=== PATIENT | female | born 1990 | race Caucasian/White ===

== ENCOUNTER 2020-05-02 07:21 | Inpatient (IN) ==
--- NOTE | 2020-05-02 07:26 | History & Physical Report ---
Date of Service May 02, 2020 Assessment & Plan (1) Elective induction of labor planned: - For induction of labor this AM. - For augmentation with Pitocin this morning 1x2, AROM later today. - Labor plan includes epidural, anesthesiology consult placed. - Expect . (2) Unfavorable cervix in term : (3) Post-term : History of Present Illness Chief Complaint: induction of labor Primary Care Provider: JAYCEE Burden 29 yo F at 40.6 weeks here for induction of labor for postdates. Had Aguilar bulb placed last night by Dr. Levi, which fell out last night before leaving hospital. No concerns or complaints this AM. No regular contractions, no gush of fluid. Reports minimal spotting following the Aguilar bulb falling out. Confirms good movement. Branch Office Administrator Hx: hx of normal PAPs, no STI hx OB Hx: Labs: Blood type: B+ Antibody screen: negative Hgb: 11.6 Hct: 32.7% WBC: 11.23 Plt: 198 Rubella status: immune VDLR/RPR: nonreactive Gonorrhea: negative Chlamydia: negative HIV: negative GBS: negative HbSAg: negative Glucose tolerance test x2: normal Allergies Allergy/AdvReac Type Severity Reaction Status Date / Time No Known Allergies Allergy Verified 05/01/20 13:31 Home Medications Home Medications Medication Instructions Recorded Confirmed Type prenat.vits,yamini,esf-illk-jdzbe 1 tab PO DAILY 09/11/19 05/01/20 History Patient History Medical History (Updated 05/02/20 @ 07:28 by Tanisha Uribe DO) Acne Breast lump Encounter for anatomic survey Varicella Surgical History H/O breast biopsy S/P wisdom tooth extraction Family History Grandmother Breast cancer Denies family history of Ovarian cancer Prostate cancer Myocardial infarction Colorectal cancer Social History Preferred Language: [place] marital status: marital status details: Irvin Levy (29) [phone] Current Living Situation: Spouse Current Living Situation Comment: lives with spouse, no pets current occupational status: employed current occupation: [employer] Feels Safe at Home: Yes Smoking Status: Never smoker Hx Alcohol Use: No Hx Substance Use: No Childhood Exposure to Second-Hand Smoke: No Dental Care, Regularly: Yes Physical Activity Frequency: 3-4 Times per Week Seatbelt Use: always Review of Systems Constitutional: denies fever, chills, sweats, headache Respiratory: denies SOB, difficulty breathing Cardiac: denies CP, chest palpitations, chest pressure Breast: denies breast pain : denies dysuria Physical Exam Physical Exam: General: patient is alert and oriented, in NAD Cardiac: +S1/S2, no murmurs rubs or gallops Respiratory: lungs CTA b/l, anteriorly and posteriorly, no wheezes rales or rhonchi, no increased work of breathing, symmetric chest rise, no respiratory distress Abdomen: Gravid, fundal height is term, + FHTs, baby is presenting vertex, no palpable contractions, EFW 7-8lbs Uterus: uterine fundus firm Lower Extremities: no LE edema or swelling, no deep calf pain, Emi's sign negative b/l Genitourinary: Manual OB Exam: + cervical dilation 4 cm, + cervical effacement 60% and + station -2 OB Exam Monitor Tracing: + external FHT monitor used, + external uterine monitor used and + normal FHT variability Monitoring External Monitor HR 140s with good variability Tocodynamometer no timeable contractions Supervising Physician Co-Signing Physician Notes Resident Physician Supervision Note: I was present with Dr. Uribe during the history and exam. I discussed the case with the resident and agree with the findings and plan as documented in the note. Any exceptions or clarifications are listed here: 29yo for planned postdate induction. Aguilar ripening yest. 4cm/cephalic today. Will plan arom, pit. No significant issues. fhts categ 1. Documented By: Sameera Levi MD, FACOG Resident Activity Tracking Resident Involvement: Resident Care Provided Care Provided: OB Delivery
[2020-05-02] MEDS ORDERED: OXYTOCIN 30 UNITS/500 ML BAG IV PRN ×3 (07:32→07:56)
[2020-05-02 07:55] LABS: Hematocrit (blood only) 32.7 % (37-47); Hemoglobin 11.6 g/dL (12.0-16.0); Mean Corpuscular Hemoglobin 32.4 pg (25-34); Mean Corpuscular Volume 91.3 fL (80-100); Mean Platelet Volume 9.7 fL (7.4-10.4); Platelet Count 198 K/uL (130-400); RDW Coefficient of Variation 13.7 % (11.5-14.5); RDW Standard Deviation 45.3 fL (36.4-46.3); Red Blood Count 3.58 M/uL (4.2-5.4); White Blood Count 11.23 K/uL (4.8-10.8)
[2020-05-02] MEDS: LACTATED RINGER'S 1,000 ML IV PRN ×5 (08:23→23:53)
[2020-05-02 08:42] LABS: Mean Corpuscular Hgb Conc 35.5 g/dL (32-36)
[2020-05-02] MEDS ORDERED: BUPIVACAINE 0.25% 30 ML VIAL ONE (11:15)
[2020-05-02] MEDS ORDERED: ePHEDrine sulfate 50 MG/ML AMP ONE (11:15)
[2020-05-02] MEDS ORDERED: fentaNYL citrate 100 MCG/2 ML VIAL ONE (11:16)
[2020-05-02] MEDS ORDERED: fentaNYL 2MCG/ML ROPIV 1.25MG/ML 100 ML BAG EPI ONE (11:17)
[2020-05-02] MEDS ORDERED: NALOXONE HCL 1 MG in SODIUM CHLORIDE 0.9% 1000ML 1,000 ML IV PRN (11:54)
[2020-05-02] MEDS ORDERED: ONDANSETRON INJ 2 MG/ML 2 ML VIAL IV PRN (11:54)
[2020-05-02] MEDS ORDERED: DiphenhydrAMINE HCL 50 MG/ML VIAL IV PRN (11:54)
[2020-05-02] MEDS ORDERED: NALBUPHINE HCL INJ 10 MG/ML AMP IV PRN (11:54)
[2020-05-02] MEDS ORDERED: ePHEDrine sulfate 50 MG/ML AMP IV PRN (11:54)
[2020-05-02] MEDS ORDERED: NALOXONE HCL 0.4 MG/1 ML VIAL/CARP IV PRN (11:54)
--- NOTE | 2020-05-02 11:55 | Anesthesiology Consultation ---
Date of Service May 02, 2020 Assessment & Plan Chart Review Chart Review: Patient NOT seen in Pre Admission Testing and Acceptable Risk for Labor Epidural Consults Requested none ASA ASA2 Proposed Anesthesia Anesthesia Type: Labor Epidural and CSE Risk / Benefits Reviewed With: PT / POA / Parent / Guardian, Accepts Plan and Informed Consent Obtained History Height/Weight Height: 5 ft 4 in Weight: 87.543 kg Allergies Allergy/AdvReac Type Severity Reaction Status Date / Time No Known Allergies Allergy Verified 05/01/20 13:31 Medications Home Medications Medication Instructions Recorded Confirmed Last Taken vit-iron fum-folic ac 1 tab PO DAILY 05/02/20 05/02/20 04/30/20 21:00 [ Vitamin] Active Medications Generic Name Dose Route Start Last Admin Trade Name Freq PRN Reason Stop Dose Admin Lactated Ringer's 1,000 mls @ 125 mls/hr 05/02/20 07:32 05/02/20 11:41 Lr IV 05/04/20 07:31 999 mls/hr .Q8H PRN Administration L&D Protocol Protocol Oxytocin 30 units in 500 mls @ 5 mls/hr 05/02/20 07:37 05/02/20 10:02 Pitocin IV 05/04/20 07:36 0.3 units/hr .Q24H PRN 5 mls/hr Labor Induction/Augmentation Titration Protocol 0.3 UNITS/HR NPO Date Last Intake of Fluids: 05/02/20 Time Last Intake of Fluids: 07:30 Date Last Intake of Solids: 05/02/20 Time Last Intake of Solids: 07:30 Past Medical History Medical History Acne Breast lump Encounter for anatomic survey Varicella Exercise / Class Metabolic Activity II 4-5 Yardwork/Stairs/Walk up hill Past Family History Family History Grandmother Breast cancer Denies family history of Ovarian cancer Prostate cancer Myocardial infarction Colorectal cancer Past Surgical History Surgical History H/O breast biopsy S/P wisdom tooth extraction Past Anesthesia History No Hx of Anesthesia Complications and No Family Hx of Anesthesia Complications History of PONV No Hx of PONV and History of PONV Social History Smoking Status: Never smoker Hx Alcohol Use: No Alcohol type: beer and wine Hx Substance Use: No substance use type: does not use Review of Systems no chest pain or sob Physical Exam Vital Signs Last Vital Signs Temp 36.6 C 05/02/20 07:37 Pulse 86 05/02/20 11:50 Resp 20 05/02/20 07:37 BP 131/75 05/02/20 10:23 Pulse Ox 98 05/02/20 11:50 ENMT Mouth: no TMJ abnormality Thyromental Distance: > or= 3.5 Finger Breadths Mallampati Class: II Neck normal visual inspection Respiratory normal respiratory effort Auscultation: lungs clear to auscultation bilaterally Cardiovascular Rate/Rhythm: regular rate and regular rhythm Musculoskeletal Spine: normal cervical ROM Neurologic moves all extremities Psychiatric Orientation: alert and oriented x 3 Testing Laboratory Results 05/02/20 07:44
--- NOTE | 2020-05-02 17:45 | Labor Progress Brief Note ---
Date of Service May 02, 2020 Subjective feeling pressure with contractions Assessment & Plan (1) Post-term : Patient with no cervical change since last exam, but not yet 6cm / active labor, so will not diagnose CPD yet. FHT Cat 1. She is noted to have some contractions at Q3min so first will increase pitocin to a Q2min pattern, then on recheck if still no progress will place IUPC to titrate MVU. Physical Exam Physical Exam: Cervix unchanged. FHT Cat 1 [place] Q2-3. Results & Data Vital Signs (Past 12 Hours) Vital Signs Temp Pulse Resp BP Pulse Ox 05/02/20 17:40 81 98 05/02/20 17:35 101 H 100 05/02/20 17:34 93 H 92 05/02/20 17:30 96 H 126/83 100 05/02/20 17:25 95 H 99 05/02/20 17:20 83 98 05/02/20 17:16 75 123/66 05/02/20 17:15 84 98 05/02/20 17:14 91 H 92 05/02/20 17:10 81 100 05/02/20 17:05 94 H 99 05/02/20 17:00 98.6 F 88 18 127/66 93 05/02/20 16:55 84 99 05/02/20 16:50 91 H 98 05/02/20 16:46 80 122/70 05/02/20 16:45 78 97 05/02/20 16:40 79 97 05/02/20 16:35 83 98 05/02/20 16:32 98 H 92 05/02/20 16:30 89 20 118/62 98 05/02/20 16:25 82 99 05/02/20 16:20 91 H 97 05/02/20 16:15 83 121/65 97 05/02/20 16:10 81 97 05/02/20 16:05 83 98 05/02/20 16:01 78 122/69 05/02/20 16:00 85 18 98 05/02/20 15:55 80 98 05/02/20 15:50 79 97 05/02/20 15:46 97 H 132/91 05/02/20 15:45 94 H 98 05/02/20 15:40 76 99 05/02/20 15:35 78 98 05/02/20 15:31 70 117/68 06 15:30 72 20 99 06 15:25 75 100 06 15:20 70 99 06 15:17 69 121/72 05/02/20 15:15 85 98 06 15:10 78 99 06 15:05 73 98 06 15:01 99.3 F 81 18 124/74 05/02/20 15:00 83 98 05/02/20 14:55 104 H 97 05/02/20 14:50 67 96 05/02/20 14:46 71 121/68 05/02/20 14:45 68 97 05/02/20 14:40 69 96 05/02/20 14:35 66 96 05/02/20 14:31 69 117/67 05/02/20 14:30 68 18 96 05/02/20 14:25 64 96 05/02/20 14:20 67 97 05/02/20 14:15 68 115/67 98 05/02/20 14:10 66 98 06 14:05 78 98 06 14:00 87 20 126/67 98 05/02/20 13:55 71 98 05/02/20 13:50 73 98 06 13:46 69 117/68 05/02/20 13:45 78 98 06 13:40 73 98 05/02/20 13:35 81 20 98 06 13:32 99.1 F 20 05/02/20 13:31 87 129/77 05/02/20 13:30 102 H 98 05/02/20 13:28 78 92 06 13:25 70 96 05/02/20 13:20 67 18 97 05/02/20 13:15 72 112/65 97 05/02/20 13:10 68 97 05/02/20 13:05 67 20 99 05/02/20 13:01 71 116/64 06 13:00 75 97 05/02/20 12:55 83 98 06 12:50 74 20 96 05/02/20 12:45 72 117/63 98 05/02/20 12:40 81 97 05/02/20 12:35 88 20 97 05/02/20 12:30 98 H 98 05/02/20 12:28 90 125/72 05/02/20 12:26 101 H 93 05/02/20 12:25 101 H 95 05/02/20 12:23 94 H 118/69 05/02/20 12:21 83 112/61 05/02/20 12:20 96 H 20 97 05/02/20 12:19 91 H 115/64 05/02/20 12:17 92 H 108/62 05/02/20 12:15 80 108/59 L 98 05/02/20 12:13 79 123/71 05/02/20 12:10 96 H 100 05/02/20 12:05 103 H 99 05/02/20 12:00 98 H 100 05/02/20 11:55 84 100 05/02/20 11:50 86 98 05/02/20 10:23 75 131/75 05/02/20 10:03 81 121/74 05/02/20 08:36 86 122/71 05/02/20 07:37 97.9 F 106 H 20 134/67 Coding Level of Care Code None Diagnoses Post-term O48.0
[2020-05-02] MEDS: fentaNYL 2MCG/ML ROPIV 1.25MG/ML 100 ML BAG EPI PRN ×2 (18:37→22:57)
--- NOTE | 2020-05-02 20:03 | Labor Progress Brief Note ---
Date of Service May 02, 2020 Subjective Feeling increased pressure; wants to know if can have more pain medicine. Assessment & Plan (1) Post-term : Continue current management. Patient aware I have concerns about narrow pelvis and her pain / cervical swelling both being indicative of a tight fit. She declines and wishes to continue IOL. Physical Exam Physical Exam: /-1, definite change, molding is present, mild cervical edema noted. [place] Q2 FHT Cat 1 with some early dec. Fluid clear. Temp noted 100.2 Results & Data Vital Signs (Past 12 Hours) Vital Signs Temp Pulse Resp BP Pulse Ox 05/02/20 20:00 99 H 122/67 100 05/02/20 19:55 110 H 99 05/02/20 19:54 111 H 93 05/02/20 19:50 105 H 100 05/02/20 19:45 107 H 133/72 100 05/02/20 19:40 86 93 05/02/20 19:35 111 H 100 05/02/20 19:31 90 18 119/78 05/02/20 19:30 90 99 05/02/20 19:25 95 H 100 05/02/20 19:21 101 H 94 05/02/20 19:20 92 H 99 05/02/20 19:16 88 125/82 05/02/20 19:15 90 99 05/02/20 19:13 93 H 93 05/02/20 19:10 89 99 05/02/20 19:08 100.2 F H 18 05/02/20 19:05 82 100 05/02/20 19:02 85 127/59 L 05/02/20 19:00 93 H 100 05/02/20 18:55 87 100 05/02/20 18:50 93 H 98 05/02/20 18:45 83 120/63 99 05/02/20 18:40 83 99 05/02/20 18:35 100 H 98 05/02/20 18:31 87 136/67 05/02/20 18:30 85 100 05/02/20 18:25 90 98 05/02/20 18:20 86 98 05/02/20 18:15 93 H 123/71 97 05/02/20 18:10 88 96 05/02/20 18:08 87 90 05/02/20 18:05 89 99 06/20 18:01 78 125/74 06/0420 18:00 85 18 98 06/0420 17:55 93 H 97 06/20 17:50 82 97 06/03/18 17:45 87 113/63 98 06/0420 17:40 81 98 06/20 17:35 101 H 100 06/20 17:34 93 H 92 06/03/18 17:30 96 H 18 126/83 100 06/20 17:25 95 H 99 06/0420 17:20 83 98 06/0420 17:16 75 123/66 06/20 17:15 84 98 06/04 17:14 91 H 92 05/02/20 17:10 81 100 06 17:05 94 H 99 05/02/20 17:00 98.6 F 88 18 127/66 93 /04 16:55 84 99 05/02/20 16:50 91 H 98 /20 16:46 80 122/70 06/03/18 16:45 78 97 06/0420 16:40 79 97 06/0420 16:35 83 98 06/0420 16:32 98 H 92 05/02/20 16:30 89 20 118/62 98 06/04 16:25 82 99 06/04 16:20 91 H 97 20 16:15 83 121/65 97 06/0420 16:10 81 97 06/0420 16:05 83 98 06/0420 16:01 78 122/69 06/20 16:00 85 18 98 06/0420 15:55 80 98 06/0420 15:50 79 97 06/0420 15:46 97 H 132/91 06/20 15:45 94 H 98 06/0420 15:40 76 99 06/0420 15:35 78 98 06/04/20 15:31 70 117/68 06/0420 15:30 72 20 99 06/04/20 15:25 75 100 06/04/20 15:20 70 99 06/04/20 15:17 69 121/72 06/0420 15:15 85 98 06/0420 15:10 78 99 06/04/20 15:05 73 98 06 15:01 99.3 F 81 18 124/74 05/02/20 15:00 83 98 06 14:55 104 H 97 05/02/20 14:50 67 96 05/02/20 14:46 71 121/68 05/02/20 14:45 68 97 05/02/20 14:40 69 96 05/02/20 14:35 66 96 05/02/20 14:31 69 117/67 06 14:30 68 18 96 05/02/20 14:25 64 96 06 14:20 67 97 06 14:15 68 115/67 98 05/02/20 14:10 66 98 05/02/20 14:05 78 98 05/02/20 14:00 87 20 126/67 98 05/02/20 13:55 71 98 05/02/20 13:50 73 98 05/02/20 13:46 69 117/68 05/02/20 13:45 78 98 06 13:40 73 98 05/02/20 13:35 81 20 98 06 13:32 99.1 F 20 05/02/20 13:31 87 129/77 05/02/20 13:30 102 H 98 05/02/20 13:28 78 92 05/02/20 13:25 70 96 05/02/20 13:20 67 18 97 05/02/20 13:15 72 112/65 97 05/02/20 13:10 68 97 05/02/20 13:05 67 20 99 05/02/20 13:01 71 116/64 05/02/20 13:00 75 97 05/02/20 12:55 83 98 06 12:50 74 20 96 05/02/20 12:45 72 117/63 98 05/02/20 12:40 81 97 05/02/20 12:35 88 20 97 05/02/20 12:30 98 H 98 05/02/20 12:28 90 125/72 05/02/20 12:26 101 H 93 05/02/20 12:25 101 H 95 06 12:23 94 H 118/69 05/02/20 12:21 83 112/61 06/04/20 12:20 96 H 20 97 05/02/20 12:19 91 H 115/64 05/02/20 12:17 92 H 108/62 05/02/20 12:15 80 108/59 L 98 05/02/20 12:13 79 123/71 05/02/20 12:10 96 H 100 05/02/20 12:05 103 H 99 05/02/20 12:00 98 H 100 05/02/20 11:55 84 100 05/02/20 11:50 86 98 05/02/20 10:23 75 131/75 05/02/20 10:03 81 121/74 05/02/20 08:36 86 122/71 Coding Level of Care Code None Diagnoses Post-term O48.0
[2020-05-02] MEDS ORDERED: Nursing to Pharmacy Communication ONE (20:04)
--- NOTE | 2020-05-03 00:55 | Labor Progress Brief Note ---
Date of Service May 03, 2020 Subjective Comfortable Assessment & Plan (1) Post-term : No cervical change despite continued attempts to reach adequate MVU / contraction pattern, and fetus no longer tolerating contractions well. Maternal temp suggests development of chorioamnionitis as well. Discussed this confluence of events with patient and FOB, and recommended moving to without delay due to failure to progress and chorioamnionitis. They are now in agreement with proceeding. R/B/A reviewed, all questions answered, consent process completed. Physical Exam Physical Exam: No change, cervix more edematous FHT Cat 2 with recurrent late decelerations but reassuring variability [place] Q3-4 Temp 100.4 Results & Data Vital Signs (Past 12 Hours) Vital Signs Temp Pulse Resp BP Pulse Ox 05/03/20 00:50 126 H 98 05/03/20 00:46 116 H 133/68 05/03/20 00:45 112 H 100 05/03/20 00:40 112 H 99 05/03/20 00:35 131 H 100 05/03/20 00:30 100.4 F H 109 H 20 128/75 100 05/03/20 00:25 101 H 100 05/03/20 00:20 113 H 98 05/03/20 00:15 115 H 100 05/03/20 00:10 118 H 97 05/03/20 00:05 99 H 100 05/03/20 00:00 105 H 112/58 L 99 05/02/20 23:55 90 99 05/02/20 23:50 91 H 100 05/02/20 23:46 86 121/60 05/02/20 23:45 87 99 05/02/20 23:40 95 H 100 05/02/20 23:35 108 H 97 05/02/20 23:32 99.7 F H 20 05/02/20 23:30 88 117/79 99 05/02/20 23:25 97 H 99 05/02/20 23:23 119 H 92 05/02/20 23:20 93 H 96 05/02/20 23:16 104 H 90 05/02/20 23:15 100 H 98 05/02/20 23:10 115 H 100 05/02/20 23:05 108 H 98 05/02/20 23:00 86 20 112/58 L 100 06/04/20 22:55 112 H 96 06/0420 22:50 90 97 06/0420 22:46 86 112/58 L 05/02/20 22:45 93 H 100 060420 22:40 93 H 100 060420 22:35 102 H 100 060420 22:30 108 H 20 122/65 99 06/0420 22:25 106 H 99 06/0420 22:20 91 H 98 06/0420 22:15 100 H 108/75 98 06/0420 22:10 99 H 100 06/0420 22:05 100 H 100 06/0420 22:02 121 H 101/70 0620 22:00 99.7 F H 99 H 18 100 0604 21:55 102 H 98 0604 21:50 94 H 100 05/02/20 21:45 104 H 134/63 100 06/0420 21:42 20 05/02/20 21:40 92 H 100 06 21:35 98 H 99 06/20 21:32 112 H 94 06/0420 21:31 90 121/58 L 05/02/20 21:30 91 H 100 06/0420 21:26 105 H 93 06/0420 21:25 115 H 97 /0420 21:20 100 H 100 06/0420 21:15 108 H 109/67 99 06/0420 21:13 103 H 90 06/0420 21:10 95 H 100 06/0420 21:05 101 H 100 0420 21:00 95 H 18 121/78 99 06/0420 20:55 95 H 99 06/0420 20:50 101 H 99 06/0420 20:46 96 H 20 117/71 06/0420 20:45 96 H 99 06/0420 20:40 112 H 98 06/0420 20:36 99.9 F H 20 06/0420 20:35 121 H 99 06/0420 20:30 114 H 132/69 99 06/04/20 20:25 100 H 100 06/0420 20:20 107 H 97 06/0420 20:15 105 H 130/67 97 06/04/20 20:10 95 H 92 06 20:07 87 91 06 20:05 95 H 100 05/02/20 20:00 99 H 122/67 100 05/02/20 19:55 110 H 99 06 19:54 111 H 93 05/02/20 19:50 105 H 100 05/02/20 19:45 107 H 133/72 100 05/02/20 19:40 86 93 06 19:35 111 H 100 05/02/20 19:31 90 18 119/78 06 19:30 90 99 05/02/20 19:25 95 H 100 05/02/20 19:21 101 H 94 05/02/20 19:20 92 H 99 05/02/20 19:16 88 125/82 05/02/20 19:15 90 99 05/02/20 19:13 93 H 93 05/02/20 19:10 89 99 05/02/20 19:08 100.2 F H 18 05/02/20 19:05 82 100 05/02/20 19:02 85 127/59 L 05/02/20 19:00 93 H 100 05/02/20 18:55 87 100 05/02/20 18:50 93 H 98 06 18:45 83 120/63 99 05/02/20 18:40 83 99 05/02/20 18:35 100 H 98 05/02/20 18:31 87 136/67 05/02/20 18:30 85 100 05/02/20 18:25 90 98 05/02/20 18:20 86 98 05/02/20 18:15 93 H 123/71 97 04 18:10 88 96 05/02/20 18:08 87 90 06 18:05 89 99 06 18:01 78 125/74 05/02/20 18:00 85 18 98 05/02/20 17:55 93 H 97 05/02/20 17:50 82 97 20 17:45 87 113/63 98 05/02/20 17:40 81 98 0620 17:35 101 H 100 05/02/20 17:34 93 H 92 05/02/20 17:30 96 H 18 126/83 100 06 17:25 95 H 99 0620 17:20 83 98 06/20 17:16 75 123/66 0620 17:15 84 98 06 17:14 91 H 92 05/02/20 17:10 81 100 06 17:05 94 H 99 05/02/20 17:00 98.6 F 88 18 127/66 93 06 16:55 84 99 05/02/20 16:50 91 H 98 05/02/20 16:46 80 122/70 06 16:45 78 97 06 16:40 79 97 06 16:35 83 98 05/02/20 16:32 98 H 92 05/02/20 16:30 89 20 118/62 98 05/02/20 16:25 82 99 05/02/20 16:20 91 H 97 05/02/20 16:15 83 121/65 97 05/02/20 16:10 81 97 05/02/20 16:05 83 98 06 16:01 78 122/69 05/02/20 16:00 85 18 98 05/02/20 15:55 80 98 05/02/20 15:50 79 97 05/02/20 15:46 97 H 132/91 05/02/20 15:45 94 H 98 05/02/20 15:40 76 99 05/02/20 15:35 78 98 06/03/18 15:31 70 117/68 05/02/20 15:30 72 20 99 05/02/20 15:25 75 100 06 15:20 70 99 06/20 15:17 69 121/72 05/02/20 15:15 85 98 0620 15:10 78 99 06 15:05 73 98 06 15:01 99.3 F 81 18 124/74 05/02/20 15:00 83 98 06 14:55 104 H 97 05/02/20 14:50 67 96 06/20 14:46 71 121/68 06/20 14:45 68 97 06/03/18 14:40 69 96 05/02/20 14:35 66 96 06/03/18 14:31 69 117/67 05/02/20 14:30 68 18 96 05/02/20 14:25 64 96 05/02/20 14:20 67 97 05/02/20 14:15 68 115/67 98 05/02/20 14:10 66 98 05/02/20 14:05 78 98 05/02/20 14:00 87 20 126/67 98 05/02/20 13:55 71 98 05/02/20 13:50 73 98 05/02/20 13:46 69 117/68 05/02/20 13:45 78 98 05/02/20 13:40 73 98 05/02/20 13:35 81 20 98 05/02/20 13:32 99.1 F 20 05/02/20 13:31 87 129/77 05/02/20 13:30 102 H 98 05/02/20 13:28 78 92 05/02/20 13:25 70 96 05/02/20 13:20 67 18 97 05/02/20 13:15 72 112/65 97 05/02/20 13:10 68 97 05/02/20 13:05 67 20 99 05/02/20 13:01 71 116/64 05/02/20 13:00 75 97 05/02/20 12:55 83 98 Coding Level of Care Code None Diagnoses Post-term O48.0
[2020-05-03] MEDS ORDERED: CITRIC ACID/SODIUM CITRATE 15 ML UDC ONE (00:57)
[2020-05-03] MEDS ORDERED: CEFAZOLIN 2000MG 2,000 MG/15 ML SYR IV ONE (01:15)
[2020-05-03] MEDS ORDERED: CITRIC ACID/SODIUM CITRATE 15 ML UDC PO ONE (01:15)
[2020-05-03] MEDS ORDERED: NALOXONE HCL 0.08 MG in SYRINGE 1.8 ML IV PRN (01:16)
[2020-05-03] MEDS ORDERED: HYDROmorphone INJ 0.5 MG/0.5 ML SYR IV PRN (01:16)
[2020-05-03] MEDS ORDERED: NALOXONE HCL 0.4 MG/1 ML VIAL/CARP IV PRN (01:16)
[2020-05-03] MEDS ORDERED: ePHEDrine sulfate 50 MG/ML AMP IV PRN (01:16)
[2020-05-03] MEDS ORDERED: MoRPHine SULFATE PF 1 MG/ML 10 ML AMP/VIAL EPI ONE (01:16)
[2020-05-03] MEDS ORDERED: DiphenhydrAMINE HCL 50 MG/ML VIAL IV PRN ×2 (01:16→19:16)
[2020-05-03] MEDS ORDERED: NALOXONE HCL 1 MG in SODIUM CHLORIDE 0.9% 1000ML 1,000 ML IV PRN (01:16)
[2020-05-03] MEDS ORDERED: NALBUPHINE HCL INJ 10 MG/ML AMP IV PRN (01:16)
[2020-05-03] MEDS ORDERED: LACTATED RINGER'S 500 ML IV PRN (01:16)
[2020-05-03] MEDS ORDERED: ONDANSETRON INJ 2 MG/ML 2 ML VIAL IV PRN ×2 (01:16→19:16)
[2020-05-03] MEDS ORDERED: LIDOCAINE/EPINEPHRINE 2% 1:200,000 20 ML SDV ONE ×2 (01:18→01:32)
[2020-05-03] MEDS: LACTATED RINGER'S 1,000 ML IV PRN (01:19)
[2020-05-03] MEDS ORDERED: NO NARCOTICS OR SEDATIVES SCH (01:30)
[2020-05-03] MEDS ORDERED: SODIUM CHLORIDE 0.9% 1000ML 1,000 ML IV SCH (01:30)
[2020-05-03] MEDS ORDERED: DC INTRASPINAL MORPHINE SCH (01:30)
[2020-05-03] MEDS ORDERED: PHENYLEPHRINE 100MCG/ML 5ML SYR ONE (01:31)
[2020-05-03] MEDS ORDERED: OXYTOCIN 10 UNITS/ML VIAL ONE ×2 (01:32→01:49)
[2020-05-03] MEDS ORDERED: MoRPHine SULFATE PF 1 MG/ML 10 ML AMP/VIAL ONE (01:32)
[2020-05-03] MEDS ORDERED: ONDANSETRON INJ 2 MG/ML 2 ML VIAL ONE (01:47)
--- NOTE | 2020-05-03 02:19 | Operative Report ---
[facility] Post Operative Report Pre & Post Diagnosis Operation Date: 05/03/20 01:00 Pre-Op Diagnosis: Primary section at term gestation for failure to progress Post-Op Diagnosis: Same as Pre op Delivery of viable baby boy at 0145 I identified the patient and participated in the time-out.: Yes Procedure Operation Date: 05/03/20 01:00 Actual Procedures p Primary Section in LD for a viable baby boy at 0145(Not Applicable) - Marion Kennedy MD Surgeon Marion Kennedy MD Director Of Intelligence Alexia Garland RN Estimated Blood Loss 600 Findings Consistent with Post-Op Diagnosis Specimens Placenta, cord blood Anesthesia Type L&D Only Epidural Exists Complications none Disposition Accompanied Patient To Recovery: Yes Disposition: L&D Description of Procedure The patient was brought to the operating room and placed on the table in the supine position with a leftward tilt, then prepped and draped in standard sterile fashion. A hard time out was taken prior to proceeding. A pfannensteil incision was created sharply and carried down to the fascia using bovie electrocautery. The fascia was nicked and then extended using schneider scissors. The edges of the fascia were grasped with Yaquelin clamps and elevated, then sharply and bluntly dissected off the underlying rectus. The midline of the rectus was identified and bluntly . The peritoneum was bluntly entered, and this entry was extended using pressure from the surgeon's hands. The bladder retractor was placed and the lower uterine segment was examined and found to be well developed. A bladder flap was created and the retractor was replaced behind this flap to protect the bladder. A transverse lower uterine incision was then created, with final entry to the uterine cavity made in a blunt manner with the surgeon's finger. Meconium-stained amniotic fluid was encountered. The head was elevated to the incision and delivered using mild fundal pressure. The cord was doubly clamped and cut, then the vigorous i nfant was taken to the warmer for adult specialist care. The placenta was manually extracted, then the uterus was gently exteriorized from the maternal abdomen. The cavity was cleared of clot and debris using a dry lap sponge. The angles of the incision were identified with allis clamps, and the hysterotomy was then repaired in running locked fashion using 0-vicryl suture, followed by a second imbricating layer. The tubes and ovaries were examined and found to be normal bilaterally. The posterior gutter was irrigated and cleared of clot and debris. The uterus was then gently re-internalized to the abdomen. A small ooze at the midpoint of the hysterotomy repair was addressed with a [id number] 0- Chromic suture. Lateral gutters were cleared of clot and debris using a damp lap sponge, and a final exam of the hysterotomy revealed good hemostasis. The rectus muscles were allowed to reapproximate naturally. The angle of the fascia was grasped with a Yaquelin clamp and the fascia was then repaired in running non- locked fashion with 1-vicryl suture. At the completion of repair, the fascia was examined and found to be free of any defect. The subcutaneous tissue was copiously irrigated and then reapproximated using 3-0 chromic. The skin was then closed using 4-0 monocryl in a running subcuticular fashion and a dermabond dressing was applied. The charles was noted to be draining clear yellow urine as the patient was transferred back to her recovery room. I attest to the content of the Intraoperative Record and any orders documented therein. Any exceptions are noted below.
[2020-05-03] MEDS ORDERED: MAGNESIUM HYDROXIDE SUSP 30 ML UDC PO PRN (02:29)
[2020-05-03] MEDS ORDERED: BENZOCAINE 20% AER SPR 82.5 GM CAN EXT PRN (02:29)
[2020-05-03] MEDS ORDERED: SENNA 8.6 MG TAB PO PRN (02:29)
[2020-05-03] MEDS ORDERED: HYDROCORTISONE ACETATE 25 MG SUPP PR PRN (02:29)
[2020-05-03] MEDS ORDERED: SUPERCREAM 0.870% 15 GM JAR EXT PRN (02:29)
[2020-05-03] MEDS ORDERED: DIPHTHERIA/TETANUS/PERTUSSIS 0.5 ML SYR/VIAL IM ONE (02:29)
[2020-05-03] MEDS ORDERED: LACTATED RINGER'S 1,000 ML IV SCH (02:30)
--- NOTE | 2020-05-03 02:31 | Anesthesiology Progress Note ---
Date of Service May 03, 2020 Anesthesia Post Procedure Vital Signs Vital Signs: Temp Pulse Resp BP Pulse Ox 05/03/20 02:26 98 H 99/52 L 96 05/03/20 01:20 106 H 99 05/03/20 01:15 112 H 99 05/03/20 01:10 95 H 99 05/03/20 01:05 100 H 99 05/03/20 01:00 101 H 98 05/03/20 00:55 113 H 99 05/03/20 00:50 126 H 98 05/03/20 00:46 116 H 133/68 05/03/20 00:45 112 H 100 05/03/20 00:40 112 H 99 05/03/20 00:35 131 H 100 05/03/20 00:30 38.0 C H 109 H 20 128/75 100 05/03/20 00:25 101 H 100 05/03/20 00:20 113 H 98 05/03/20 00:15 115 H 100 05/03/20 00:10 118 H 97 05/03/20 00:05 99 H 100 05/03/20 00:00 105 H 112/58 L 99 05/02/20 23:55 90 99 05/02/20 23:50 91 H 100 05/02/20 23:46 86 121/60 05/02/20 23:45 87 99 05/02/20 23:40 95 H 100 05/02/20 23:35 108 H 97 05/02/20 23:32 37.6 C H 20 05/02/20 23:30 88 117/79 99 05/02/20 23:25 97 H 99 05/02/20 23:23 119 H 92 05/02/20 23:20 93 H 96 05/02/20 23:16 104 H 90 05/02/20 23:15 100 H 98 05/02/20 23:10 115 H 100 05/02/20 23:05 108 H 98 05/02/20 23:00 86 20 112/58 L 100 05/02/20 22:55 112 H 96 05/02/20 22:50 90 97 05/02/20 22:46 86 112/58 L 05/02/20 22:45 93 H 100 05/02/20 22:40 93 H 100 05/02/20 22:35 102 H 100 05/02/20 22:30 108 H 20 122/65 99 06/0420 22:25 106 H 99 060420 22:20 91 H 98 06 22:15 100 H 108/75 98 06 22:10 99 H 100 0604 22:05 100 H 100 05/02/20 22:02 121 H 101/70 06 22:00 37.6 C H 99 H 18 100 05/02/20 21:55 102 H 98 05/02/20 21:50 94 H 100 05/02/20 21:45 104 H 134/63 100 06 21:42 20 05/02/20 21:40 92 H 100 05/02/20 21:35 98 H 99 05/02/20 21:32 112 H 94 05/02/20 21:31 90 121/58 L 05/02/20 21:30 91 H 100 05/02/20 21:26 105 H 93 05/02/20 21:25 115 H 97 05/02/20 21:20 100 H 100 05/02/20 21:15 108 H 109/67 99 04 21:13 103 H 90 0604 21:10 95 H 100 05/02/20 21:05 101 H 100 05/02/20 21:00 95 H 18 121/78 99 0604 20:55 95 H 99 05/02/20 20:50 101 H 99 060420 20:46 96 H 20 117/71 06 20:45 96 H 99 0420 20:40 112 H 98 05/02/20 20:36 37.7 C H 20 05/02/20 20:35 121 H 99 0420 20:30 114 H 132/69 99 060420 20:25 100 H 100 060420 20:20 107 H 97 0420 20:15 105 H 130/67 97 060420 20:10 95 H 92 0604 20:07 87 91 06 20:05 95 H 100 060420 20:00 99 H 122/67 100 060420 19:55 110 H 99 06 19:54 111 H 93 05/02/20 19:50 105 H 100 05/02/20 19:45 107 H 133/72 100 05/02/20 19:40 86 93 05/02/20 19:35 111 H 100 05/02/20 19:31 90 18 119/78 05/02/20 19:30 90 99 05/02/20 19:25 95 H 100 05/02/20 19:21 101 H 94 05/02/20 19:20 92 H 99 05/02/20 19:16 88 125/82 05/02/20 19:15 90 99 05/02/20 19:13 93 H 93 05/02/20 19:10 89 99 05/02/20 19:08 37.9 C H 18 05/02/20 19:05 82 100 05/02/20 19:02 85 127/59 L 05/02/20 19:00 93 H 100 05/02/20 18:55 87 100 05/02/20 18:50 93 H 98 05/02/20 18:45 83 120/63 99 05/02/20 18:40 83 99 05/02/20 18:35 100 H 98 05/02/20 18:31 87 136/67 05/02/20 18:30 85 100 05/02/20 18:25 90 98 05/02/20 18:20 86 98 05/02/20 18:15 93 H 123/71 97 05/02/20 18:10 88 96 05/02/20 18:08 87 90 05/02/20 18:05 89 99 05/02/20 18:01 78 125/74 05/02/20 18:00 85 18 98 05/02/20 17:55 93 H 97 05/02/20 17:50 82 97 05/02/20 17:45 87 113/63 98 05/02/20 17:40 81 98 05/02/20 17:35 101 H 100 05/02/20 17:34 93 H 92 05/02/20 17:30 96 H 18 126/83 100 05/02/20 17:25 95 H 99 05/02/20 17:20 83 98 05/02/20 17:16 75 123/66 05/02/20 17:15 84 98 05/02/20 17:14 91 H 92 05/02/20 17:10 81 100 05/02/20 17:05 94 H 99 05/02/20 17:00 37.0 C 88 18 127/66 93 05/02/20 16:55 84 99 05/02/20 16:50 91 H 98 05/02/20 16:46 80 122/70 05/02/20 16:45 78 97 05/02/20 16:40 79 97 05/02/20 16:35 83 98 05/02/20 16:32 98 H 92 05/02/20 16:30 89 20 118/62 98 06 16:25 82 99 06 16:20 91 H 97 05/02/20 16:15 83 121/65 97 05/02/20 16:10 81 97 05/02/20 16:05 83 98 05/02/20 16:01 78 122/69 05/02/20 16:00 85 18 98 05/02/20 15:55 80 98 05/02/20 15:50 79 97 05/02/20 15:46 97 H 132/91 05/02/20 15:45 94 H 98 05/02/20 15:40 76 99 05/02/20 15:35 78 98 06 15:31 70 117/68 05/02/20 15:30 72 20 99 05/02/20 15:25 75 100 05/02/20 15:20 70 99 06 15:17 69 121/72 05/02/20 15:15 85 98 05/02/20 15:10 78 99 05/02/20 15:05 73 98 05/02/20 15:01 37.4 C 81 18 124/74 05/02/20 15:00 83 98 05/02/20 14:55 104 H 97 05/02/20 14:50 67 96 06/03/18 14:46 71 121/68 05/02/20 14:45 68 97 05/02/20 14:40 69 96 05/02/20 14:35 66 96 06 14:31 69 117/67 05/02/20 14:30 68 18 96 05/02/20 14:25 64 96 06 14:20 67 97 06 14:15 68 115/67 98 05/02/20 14:10 66 98 05/02/20 14:05 78 98 06 14:00 87 20 126/67 98 05/02/20 13:55 71 98 05/02/20 13:50 73 98 05/02/20 13:46 69 117/68 05/02/20 13:45 78 98 05/02/20 13:40 73 98 05/02/20 13:35 81 20 98 05/02/20 13:32 37.3 C 20 05/02/20 13:31 87 129/77 05/02/20 13:30 102 H 98 05/02/20 13:28 78 92 05/02/20 13:25 70 96 05/02/20 13:20 67 18 97 05/02/20 13:15 72 112/65 97 05/02/20 13:10 68 97 05/02/20 13:05 67 20 99 05/02/20 13:01 71 116/64 05/02/20 13:00 75 97 05/02/20 12:55 83 98 05/02/20 12:50 74 20 96 05/02/20 12:45 72 117/63 98 05/02/20 12:40 81 97 05/02/20 12:35 88 20 97 05/02/20 12:30 98 H 98 05/02/20 12:28 90 125/72 05/02/20 12:26 101 H 93 05/02/20 12:25 101 H 95 05/02/20 12:23 94 H 118/69 05/02/20 12:21 83 112/61 05/02/20 12:20 96 H 20 97 05/02/20 12:19 91 H 115/64 05/02/20 12:17 92 H 108/62 05/02/20 12:15 80 108/59 L 98 05/02/20 12:13 79 123/71 05/02/20 12:10 96 H 100 05/02/20 12:05 103 H 99 05/02/20 12:00 98 H 100 05/02/20 11:55 84 100 05/02/20 11:50 86 98 05/02/20 10:23 75 131/75 05/02/20 10:03 81 121/74 06 08:36 86 122/71 05/02/20 07:37 36.6 C 106 H 20 134/67 Pain Intensity Bilateral Lower Abdomen: Pain Intensity: 1 Transfer of Care Handoff Completed per policy Notes Mental Status: alert / awake / arousable Patient Amnestic to Procedure: Yes Nausea / Vomiting: adequately controlled Pain: adequately controlled Airway Patency, RR, SpO2: stable & adequate BP & HR: stable & adequate Hydration State: stable & adequate Neuraxial Anesthesia: was administered and sensory block is resolving Anesthetic Complications: no major complications apparent and Pt Satisfied with anesthetic care
[2020-05-03] MEDS ORDERED: OXYTOCIN 30 UNITS in LACTATED RINGER'S 1,000 ML IV SCH (02:45)
[2020-05-03] MEDS: KETOROLAC 30 MG/ML VIAL IV PRN ×3 (02:56→18:22)
[2020-05-03] MEDS: DOCUSATE SODIUM 100 MG CAP PO SCH ×2 (12:05→20:28)
[2020-05-03] MEDS: PRENATAL VITAMIN 1 TAB PO SCH (12:05)
[2020-05-03] MEDS: FERROUS SULFATE 325 MG TAB PO SCH (12:05)
[2020-05-03] MEDS: SIMETHICONE 80 MG CHEW PO SCH ×3 (12:05→20:28)
[2020-05-03] MEDS ORDERED: KETOROLAC 30 MG/ML VIAL IV PRN (19:16)
[2020-05-03] MEDS ORDERED: PROMETHAZINE HCL 25 MG in SODIUM CHLORIDE 0.9% 50 ML IV PRN (19:16)
[2020-05-03] MEDS ORDERED: MEPERIDINE HCL 50 MG/ML CARP IV PRN (19:16)
[2020-05-04] MEDS: OXYCODONE/ACETAMINOPHEN 5mg/325mg TAB PO PRN ×5 (01:32→21:38)
[2020-05-04] MEDS: IBUPROFEN 600 MG TAB PO PRN ×5 (01:32→21:38)
[2020-05-04 06:32] LABS: Basophils # (auto) 0.02 K/uL (0-0.2); Basophils % (auto) 0.1 %; Eosinophils # (auto) 0.05 K/uL (0-0.5); Eosinophils % (auto) 0.3 %; Hematocrit (blood only) 26.2 % (37-47); Immature Granulocytes # (auto) 0.05 K/uL (0.00-0.02); Immature Granulocytes % (auto) 0.3 %; Lymphocytes # (auto) 2.36 K/uL (1.2-3.4); Lymphocytes % (auto) 15.7 %; Mean Corpuscular Hemoglobin 31.8 pg (25-34); Mean Corpuscular Hgb Conc 34.4 g/dL (32-36); Mean Corpuscular Volume 92.6 fL (80-100); Mean Platelet Volume 9.7 fL (7.4-10.4); Monocytes % (auto) 6.7 %; Neutrophils # (auto) 11.54 K/uL (1.4-6.5); Neutrophils % (auto) 76.9 %; Platelet Count 180 K/uL (130-400); RDW Coefficient of Variation 14.2 % (11.5-14.5); RDW Standard Deviation 48.1 fL (36.4-46.3); Red Blood Count 2.83 M/uL (4.2-5.4); White Blood Count 15.02 K/uL (4.8-10.8)
--- NOTE | 2020-05-04 07:04 | Obstetrical Progress Note ---
Date of Service <Tanisha Uribe DO - Last Filed: 05/04/20 07:41> May 04, 2020 Assessment & Plan <DO Yemi Daniels Last Filed: 05/04/20 07:41> (1) Encounter for care and examination after delivery: - doing well this morning, with a mild headache without signs or symptoms suggestive of preeclampsia. - will give one dose ibuprofen now, assess following breakfast to see if headache has improved. - will continue routine care. - following discharge will have appointment with Dr. Kennedy. Subjective <Tanisha Uribe DO - Last Filed: 05/04/20 07:41> 29 yo F ; POD # 1 following section delivery; doing well this AM; minimal abdominal cramping/pain at rest, some incisional area tenderness with changing positions controlled well with pain medications; voiding well, passing gas but no BM; tolerating meals overnight, able to ambulate some within the room. Some persistent spotting this morning but improved from yesterday. Compl aining of a headache this morning, dull, achy, no associated visual changes, dizziness, abdominal pain, peripheral edema. She is associating the headache with not having any full diet until her breakfast that comes this morning. 24 Hour I/Os: Intake: 2560 Output: 2800 Review of Systems Constitutional: denies fever, chills, sweats, headache Respiratory: denies SOB, difficulty breathing Cardiac: denies CP, chest palpitations, chest pressure Breast: denies breast pain : denies dysuria Physical Exam <DO Yemi Daniels Last Filed: 05/04/20 07:41> General: patient is alert and oriented, in NAD Cardiac: +S1/S2, no murmurs rubs or gallops Respiratory: lungs CTA b/l, anteriorly and posteriorly, no wheezes rales or rhonchi, no increased work of breathing, symmetric chest rise, no respiratory distress Abdomen: soft, NT, +bowel sounds Uterus: uterine fundus firm, palpable below the level of the umbilicus. Incision intact, non-tender, non-erythematous, no weeping from incision site Lower Extremities: no LE edema or swelling, no deep calf pain, Emi's sign negative b/l Results & Data <Tanisha Bowierenan DO [place] Last Filed: 06/06/20 07:41> Vital Signs (Past 12 Hours) Vital Signs Temp Pulse Resp BP Pulse Ox 05/03/20 23:30 36.8 C 89 18 120/73 05/03/20 20:40 36.9 C 89 18 116/76 98 <Presley Dubon Jr, MD, FACOG - Last Filed: 05/04/20 07:50> Co-Signing Physician Notes Resident Physician Supervision Note: I was present with Dr. López during the history and exam. I discussed the case with the resident and agree with the findings and plan as documented in the note. Any exceptions or clarifications are listed here: Doing well, will begin ambulation, all questions answered Documented By: Presley Dubon Jr, MD, FACOG Resident Activity Tracking <Tanisha Uribe DO - Last Filed: 05/04/20 07:41> Resident Involvement: Resident Care Provided Care Provided: OB Delivery
[2020-05-04] MEDS: PRENATAL VITAMIN 1 TAB PO SCH (07:35)
[2020-05-04] MEDS: FERROUS SULFATE 325 MG TAB PO SCH (07:40)
[2020-05-04] MEDS: SIMETHICONE 80 MG CHEW PO SCH ×4 (07:40→21:38)
[2020-05-04] MEDS: DOCUSATE SODIUM 100 MG CAP PO SCH ×2 (07:40→21:38)
[2020-05-05] MEDS: OXYCODONE/ACETAMINOPHEN 5mg/325mg TAB PO PRN ×6 (00:41→21:59)
[2020-05-05] MEDS: IBUPROFEN 600 MG TAB PO PRN ×6 (00:42→21:59)
[2020-05-05 06:18] LABS: Hematocrit (blood only) 26.8 % (37-47)
--- NOTE | 2020-05-05 07:28 | Obstetrical Progress Note ---
Date of Service May 05, 2020 Assessment & Plan (1) S/P section: Doing well. routine care. Day #:: 2 Subjective Ambulation: ambulating normally Voiding: no voiding problems Passing Gas:: Yes Diet Tolerance:: regular diet Lochia:: Small Feeding Type:: breast feeding Physical Exam Constitutional WD/WN, vitals as above Cardiovascular Extremities: no calf tenderness and no edema Gastrointestinal (Abdomen) soft, nt ff/appropriately tender at u Psychiatric A+Ox3, euthymic affect Results & Data Vital Signs (Past 12 Hours) Vital Signs Temp Pulse Resp BP Pulse Ox 05/05/20 00:00 36.5 C 80 18 117/77 99
[2020-05-05] MEDS: SIMETHICONE 80 MG CHEW PO SCH ×4 (08:54→20:07)
[2020-05-05] MEDS: FERROUS SULFATE 325 MG TAB PO SCH (08:55)
[2020-05-05] MEDS: DOCUSATE SODIUM 100 MG CAP PO SCH ×2 (08:55→20:07)
[2020-05-05] MEDS: PRENATAL VITAMIN 1 TAB PO SCH (08:55)
[2020-05-06] MEDS: OXYCODONE/ACETAMINOPHEN 5mg/325mg TAB PO PRN ×3 (04:42→12:45)
[2020-05-06] MEDS: IBUPROFEN 600 MG TAB PO PRN ×3 (04:42→12:46)
--- NOTE | 2020-05-06 06:31 | Obstetrical Progress Note ---
Date of Service <Seng Soares DO - Last Filed: 05/06/20 06:31> May 06, 2020 Assessment & Plan <Seng Soares DO - Last Filed: 05/06/20 06:31> (1) S/P section: -POD#3 -Vitals reviewed, WNL - GBS -, Blood Type B+ - Clinically stable. - Feels well today. Eating well, voiding well, ambulating well. - Pain well controlled. - Routine post care - After discharge will have [address] Kennedy. Day #:: 3 Subjective <Seng Soares DO - Last Filed: 05/06/20 06:31> Ambulation: ambulating normally Voiding: no voiding problems Passing Gas:: Yes Diet Tolerance:: regular diet Lochia:: Small Feeding Type:: breast feeding Current Pain Level(1-10): 2 (improves with analgesics) Patient is a 29 POD#3. Patient states that she is doing well this morning and that her pain is well controlled. She has no complaints at this point in time. Constitutional: no fever and no chills Respiratory: no cough, no dyspnea and no wheezing Cardiovascular: no chest pain, no dyspnea, no dyspnea on exertion, no edema and no calf pain Breast: + breast pain (nipple pain with feeds) Gastrointestinal: + abdominal pain (appropriate, around incision ); no nausea and no vomiting Genitourinary (female): no dysuria Neurologic: no headache(s) Physical Exam <Seng Soares DO - Last Filed: 05/06/20 06:31> Constitutional WD/WN, vitals as above Respiratory normal respiratory effort, lungs clear to auscultation Cardiovascular Rate/Rhythm: regular rate and regular rhythm Heart Sounds: normal S1 and normal S2; no click, no gallop, no murmur and no cardiac rub Extremities: + edema (+1); no calf tenderness Gastrointestinal (Abdomen) Inspection/Auscultation: abdomen normal to inspection, normal bowel sounds and + abdominal surgical incision (Clean and Dry, No Pus noted. ) Percussion/Palpation: + abdomen tender (diffuse, appropriate) and abdomen soft Genitourinary OB Exam Abdomen: + fundal height Fundus: + firm and + relation to umbilicus (3cm below); not tender and not boggy Results & Data <Seng Soares DO - Last Filed: 05/06/20 06:31> Vital Signs (Past 12 Hours) Vital Signs Temp Pulse Resp BP Pulse Ox 05/06/20 04:00 36.7 C 70 18 126/72 05/05/20 19:25 36.8 C 92 H 18 129/85 99 <Theresa Candelario MD, FACOG - Last Filed: 05/06/20 07:31> Co-Signing Physician Notes Resident Physician Supervision Note: I interviewed and examined the patient. Discussed with Dr. Soares and agree with findings and plan as documented in the note. Any exceptions or clarifications are listed here: Doing well. Plan d/c. Instructions given. Documented By: Theresa Candelario MD, FACOG Resident Activity Tracking <Seng Soares DO - Last Filed: 05/06/20 06:31> Resident Involvement: Resident Care Provided Care Provided: OB Delivery
[2020-05-06] MEDS: PRENATAL VITAMIN 1 TAB PO SCH (08:46)
[2020-05-06] MEDS: DOCUSATE SODIUM 100 MG CAP PO SCH (08:46)
[2020-05-06] MEDS: FERROUS SULFATE 325 MG TAB PO SCH (08:46)
[2020-05-06] MEDS: SIMETHICONE 80 MG CHEW PO SCH ×2 (08:48→12:46)
--- NOTE | 2020-05-07 18:43 | Discharge Summary ---
Date of Service May 07, 2020 Admission HPI Per Admitting Provider 29 yo F at 40.6 weeks here for induction of labor for postdates. Had Aguilar bulb placed last night by Dr. Levi, which fell out last night before leaving hospital. No concerns or complaints this AM. No regular contractions, no gush of fluid. Reports minimal spotting following the Aguilar bulb falling out. Confirms good movement. Group Social Worker Hx: hx of normal PAPs, no STI hx OB Hx: Labs: Blood type: B+ Antibody screen: negative Hgb: 11.6 Hct: 32.7% WBC: 11.23 Plt: 198 Rubella status: immune VDLR/RPR: nonreactive Gonorrhea: negative Chlamydia: negative HIV: negative GBS: negative HbSAg: negative Glucose tolerance test x2: normal Discharge Data Consultations 05/02/20 07:32 Consult Anesthesiology Stat Procedures Performed Operation Date: 05/03/20 01:00 Actual Procedures p Primary Section in LD for a viable baby boy at 0145(Not Applicable) - Marion Kennedy MD Hospital Course (1) S/P section: Induction of labor with arrest of descent, moved to uncomplicated delivery. After uneventful recovery, patient discharged to home with usual 6 week f/u. Coding Level of Care Code None Diagnoses S/P section Z98.891
== END 2020-05-06 17:00 | disposition home or self-care (01) | DRG 786 ==
LOC: 4S1 07:21 → 4S2 05-03 05:13

== ENCOUNTER 2023-01-25 07:07 | Inpatient (IN) ==
--- NOTE | 2023-01-18 08:25 | Anesthesiology Consultation ---
Date of Service January 18, 2023 Assessment & Plan (1) Encounter for pre-operative examination: Chart Review Chart Review: entry level account executive initiated -COVID screening: Per PAT nursing assessment on 01/15/23. No known COVID-19 p ositive contacts or current COVID-19 related symptoms. Travel screen negative. Patient vaccinated for Covid. At surgeon discretion if preop Covid testing being done. History Surgery Operation Date: 01/25/23 07:30 Proposed Procedures p Section (Delivery of Baby Through Abdominal Incision) - Pily Paz DO Height/Weight Height: 5 ft 4.5 in Weight: 91.626 kg Allergies Allergy/AdvReac Type Severity Reaction Status Date / Time No Known Allergies Allergy Verified 01/15/23 15:12 Medications Home Medications Medication Instructions Recorded Confirmed Last Taken prenat.vits,yamini,[id number] 1 tab PO QAM 06/12/22 01/15/23 Unknown Past Medical History Medical History Carrier of group B Streptococcus History of COVID-19 Summer 2021. no current issues Past Family History Family History Grandmother Breast cancer Other No family history of adverse response to anesthesia Denies family history of Ovarian cancer Prostate cancer Myocardial infarction Colorectal cancer Past Surgical History Surgical History H/O breast biopsy benign S/P section x1 S/P wisdom tooth extraction Social History Smoking Status: Never smoker Do You Dip or Chew Tobacco: No Hx Alcohol Use: No Hx Substance Use: No substance use type: does not use
[~2023-01-25 07:07] MED LIST: ceFAZolin 2000MG 2,000 MG/15 ML SYR IV SCH
[2023-01-25] MEDS ORDERED: LACTATED RINGER'S 1,000 ML IV PRN (07:11)
[2023-01-25] MEDS ORDERED: LIDOCAINE 1% LOCAL 20 ML VIAL INFIL PRN (07:11)
[2023-01-25] MEDS ORDERED: OXYTOCIN 30 UNITS/500 ML BAG IV PRN (07:11)
--- NOTE | 2023-01-25 08:14 | History & Physical Report ---
Date of Service January 25, 2023 Assessment & Plan (1) Previous delivery affecting , antepartum: Plan: Previously discussed informed consent in office. Questions answered. Plans for repeat section. Admission and Anticipated Discharge Date Admission Date: January 25, 2023 History of Present Illness Chief Complaint: repeat csection Primary Care Provider: JAYCEE Flores 32yo @ 39 5/, scheduled for repeat section. with suspected LGA, also GBS+. Allergies Allergy/AdvReac Type Severity Reaction Status Date / Time No Known Allergies Allergy Verified 01/25/23 07:33 Home Medications Medication Instructions Recorded Confirmed Type prenat.vits,yamini,[id number] 1 tab PO QAM 06/12/22 01/25/23 History Patient History Medical History Carrier of group B Streptococcus History of COVID-19 Summer 2021. no current issues Surgical History H/O breast biopsy benign S/P section x1 S/P wisdom tooth extraction Family History Grandmother Breast cancer Other No family history of adverse response to anesthesia Denies family history of Ovarian cancer Prostate cancer Myocardial infarction Colorectal cancer Social History Smoking Status: Never smoker Second Hand Exposure: No; Do You Dip or Chew Tobacco: No; Tobacco Cessation Education Requested by Patient: No Hx Alcohol Use: No Hx Substance Use: No Preferred Language: Maori Communication Ability: Effective Hearing Ability: Normal Fish Tender Required: No Beliefs That Will Affect Care: None marital status: marital status details: Irvin Levy (32) [phone] Current Living Situation: Spouse Current Living Situation Comment: lives with spouse, son, no pets. current occupational status: employed current occupation: [employer] Other Information That Helps Us Care for You: No Feels Safe at Home: Yes Safety Concerns: Feels Safe At This Time Childhood Exposure to Second-Hand Smoke: No caffeine: Yes Dental Care, Regularly: Yes Physical Activity Frequency: 3-4 Times per Week Seatbelt Use: always Assistive Devices: None Review of Systems All systems reviewed & are unremarkable except as noted in HPI & below Physical Exam Constitutional: WD/WN, vitals as above Respiratory: normal respiratory effort, lungs clear to auscultation no respiratory distress Cardiovascular: Rate/Rhythm: regular rate and regular rhythm Gastrointestinal (Abdomen): Inspection/Auscultation: abdomen normal to inspection Percussion/Palpation: abdomen soft; abdomen nontender Gravid. No s/s chorio or abruption. Skin: no rashes, warm and dry Psychiatric: A+Ox3, euthymic affect Results & Data ([facility]) Vital Signs (Past 12 Hours) Vital Signs Temp Pulse Resp BP 01/25/23 07:35 37.3 C 104 H 18 127/69 01/25/23 07:27 104 H 127/69 Monitoring External Monitor FHT Cat 1 [place] none Coding Level of Care Code None Diagnoses Previous delivery affecting , antepartum O34.219
[2023-01-25 08:17] LABS: Basophils # (auto) 0.02 K/uL (0-0.2); Basophils % (auto) 0.2 %; Eosinophils # (auto) 0.03 K/uL (0-0.50); Eosinophils % (auto) 0.3 %; Hematocrit (blood only) 31.9 % (37.0-47.0); Hemoglobin 10.9 g/dl (12.0-16.0); Immature Granulocytes # (auto) 0.05 K/uL (0.01-0.20); Immature Granulocytes % (auto) 0.6 %; Lymphocytes # (auto) 2.12 K/uL (1.2-3.4); Lymphocytes % (auto) 23.4 %; Mean Corpuscular Hgb Conc 34.2 g/dL (32.0-36.0); Mean Corpuscular Volume 87.9 fL (80.0-100.0); Mean Platelet Volume 9.4 fL (9.4-12.4); Monocytes % (auto) 6.6 %; Neutrophils # (auto) 6.24 K/uL (1.40-6.50); Neutrophils % (auto) 68.9 %; Platelet Count 222 K/uL (130-400); RDW Coefficient of Variation 13.2 % (11.5-14.5); RDW Standard Deviation 42.5 fL (36.4-46.3); Red Blood Count 3.63 M/uL (4.20-5.40); White Blood Count 9.06 K/ul (4.8-10.8)
[2023-01-25] MEDS ORDERED: MoRPHine SULFATE 2 MG/ML CARP IV PRN (08:32)
[2023-01-25] MEDS ORDERED: ONDANSETRON INJ 2 MG/ML 2 ML VIAL IV PRN (08:32)
[2023-01-25] MEDS ORDERED: PROMETHAZINE HCL 6.25 MG in SODIUM CHLORIDE 0.9% 50 ML IV PRN (08:32)
[2023-01-25] MEDS ORDERED: MoRPHine SULFATE PF 1 MG/ML 10 ML AMP/VIAL INT SPINAL ONE (08:32)
[2023-01-25] MEDS ORDERED: LACTATED RINGER'S 500 ML IV PRN (08:32)
[2023-01-25] MEDS ORDERED: diphenhydrAMINE 50 MG/ML VIAL IV PRN (08:32)
[2023-01-25] MEDS ORDERED: NALOXONE HCL 0.4 MG/1 ML VIAL/CARP IV PRN (08:32)
[2023-01-25] MEDS ORDERED: MEPERIDINE HCL 25 MG/ML CARP/VIAL IV PRN (08:32)
[2023-01-25] MEDS ORDERED: NALBUPHINE HCL INJ 10 MG/ML AMP IV PRN (08:32)
[2023-01-25] MEDS ORDERED: KETOROLAC 30 MG/ML VIAL IV PRN (08:32)
[2023-01-25] MEDS ORDERED: NALOXONE HCL 1 MG in SODIUM CHLORIDE 0.9% 1000ML 1,000 ML IV PRN (08:32)
[2023-01-25] MEDS ORDERED: HYDROmorphone INJ 0.5 MG/0.5 ML SYR IV PRN (08:32)
[2023-01-25] MEDS ORDERED: ePHEDrine sulfate 50 MG/ML AMP IV PRN (08:32)
[2023-01-25] MEDS ORDERED: NALOXONE HCL 0.08 MG in SYRINGE 1.8 ML IV PRN (08:32)
[2023-01-25] MEDS ORDERED: MoRPHine SULFATE PF 1 MG/ML 10 ML AMP/VIAL ONE (08:34)
[2023-01-25] MEDS ORDERED: OXYTOCIN 10 UNITS/ML 10ML VIAL ONE ×6 (08:36→09:36)
[2023-01-25] MEDS ORDERED: SODIUM CHLORIDE 0.9% 1000ML 1,000 ML IV SCH (08:45)
[2023-01-25] MEDS ORDERED: DC INTRASPINAL MORPHINE SCH (08:45)
[2023-01-25] MEDS ORDERED: NO NARCOTICS OR SEDATIVES SCH (08:45)
[2023-01-25] MEDS ORDERED: ONDANSETRON INJ 2 MG/ML 2 ML VIAL ONE (09:36)
[2023-01-25] MEDS ORDERED: KETOROLAC 30 MG/ML VIAL ONE (09:36)
[2023-01-25] MEDS ORDERED: SENNA 8.6 MG TAB PO PRN (10:18)
[2023-01-25] MEDS ORDERED: BENZOCAINE 20% AER SPR 82.5 GM CAN EXT PRN (10:18)
[2023-01-25] MEDS ORDERED: HYDROCORTISONE ACETATE 25 MG SUPP PR PRN (10:18)
[2023-01-25] MEDS ORDERED: LACTATED RINGER'S 1,000 ML IV SCH (10:18)
[2023-01-25] MEDS ORDERED: MAGNESIUM HYDROXIDE SUSP 30 ML UDC PO PRN (10:18)
[2023-01-25] MEDS ORDERED: DIPHTHERIA/TETANUS/PERTUSSIS 0.5mL SYR/VIAL (Age 7+yrs) IM ONE (10:18)
--- NOTE | 2023-01-25 10:21 | Operative Report ---
PG Post Operative Report Pre & Post Diagnosis Operation Date: 01/25/23 09:15 Pre-Op Diagnosis: History of section, term with desire for repeat Post-Op Diagnosis: same I identified the patient and participated in the time-out.: Yes Procedure Operation Date: 01/25/23 09:15 Actual Procedures Repeat low transverse section for a live male child at 0918 - Pily Paz DO Surgeon Pily Paz DO Airline Operations Agent Carl Lino RN Estimated Blood Loss 500 Findings Consistent with Post-Op Diagnosis Viable male . Apgars 8/9, Wt [id number]. Normal appearing uterus, ovaries, fallopian tubes. Specimens Placenta, cord blood, cord gas. Drains charles clear yellow Anesthesia Type Spinal Complications none Disposition Accompanied Patient To Recovery: No Disposition: L&D Indications 32yo @ 39 5/, scheduled repeat section. Description of Procedure The patient was seen in her labor and delivery room, risks benefits and alternatives to surgery were reviewed. Informed consent obtained. Questions were answered. She was taken to the operating room, spinal anesthesia was administered. She was then prepared and draped in the usual sterile fashion in the supine position with a leftward tilt. Timeout was confirmed. A Pfannenstiel skin incision was made through prior incision with a scalpel, and carried through to the underlying layer of fascia. Fascia was nicked at midline, and this incision was extended bilaterally. The superior aspect of the fascial incision was grasped with Yaquelin clamps x2, elevated off the underlying rectus abdominis muscles, and dissected sharply and bluntly. In similar fashion, the inferior aspect of the fascial incision was dissected. The rectus abdominis muscles were , and the peritoneum was entered bluntly digitally. This was extended bilaterally. The bladder flap was taken down carefully using Metzenbaum scissors. Using a new scalpel, a low transverse uterine incision was created. Clear amniotic fluid noted. The infant was delivered from a cephalic presentation. The head delivered, followed by shoulders and body. Spontaneous cry on the field. The cord was doubly clamped and cut, and the infant was handed off to the waiting architectural model maker. A segment was retained for cord gases. Cord blood was obtained. The placenta was delivered spontaneously intact. The uterus was exteriorized, and cleared of all clots and debris. The hysterotomy incision was reapproximated using 0 Vicryl in a running locked stitch. A second layer of the same suture was used to imbricate the incision. Posterior uterus was evaluated and normal. The uterus was returned to the abdomen, and gutters were cleared of clots and debris. Excellent hemostasis was observed after [id number] sutures at midline on hysterotomy. The fascial incision was reapproximated using 0 Vicryl in a running stitch. The subcutaneous tissue was irrigated, and reapproximated using 2-0 plain gut in a running stitch. The skin was reapproximated using 4-0 Vicryl in a running subcuticular stitch. Steri-Strips and a bandage were applied. The patient tolerated the procedure well, and will be taken to the recovery area in stable and good condition. Sponge, needle, instrument counts correct x 2. I attest to the content of the Intraoperative Record and any orders documented therein. Any exceptions are noted below. OB Procedure Charges 26012
[2023-01-25 10:38] LABS: Base Excess Cord Arterial Bld -3.5 mEq/L (-9-1.8); CO2 Cord Arterial Blood 60 mmHg (39.1-73.5); HCO3 Cord Arterial Blood 25 mmol/L (19.7-28.5); Oxygen Sat Cord Arterial Blood < 60.0 % (<60); PO2 Cord Arterial Blood 8 mmHg (4.1-31.7); pH Cord Arterial Blood 7.23 (7.1-7.38)
[2023-01-25 10:42] LABS: Base Excess Cord Venous Blood -3.4 mEq/L (-7.7-1.9); Cord Venous Blood HCO3 24 mmol/L (18.4-26.8); Cord Venous Blood PCO2 49 mmHg (30.4-57.2); Cord Venous Blood PO2 21 mmHg (14.1-43.3); Cord Venous Blood pH 7.29 (7.20-7.44); O2 Saturation Cord Venous Bld < 60.0 % (<68)
--- NOTE | 2023-01-25 12:18 | Anesthesiology Progress Note ---
Date of Service January 25, 2023 Anesthesia Post Procedure Vital Signs Vital Signs: Temp Pulse Resp BP Pulse Ox 01/25/23 07:35 37.3 C 104 H 18 127/69 01/25/23 12:16 69 118/56 L 01/25/23 12:14 86 97 01/25/23 12:09 90 98 01/25/23 12:01 76 126/58 L 01/25/23 11:59 86 96 01/25/23 11:54 79 97 01/25/23 11:49 87 97 01/25/23 11:45 68 118/66 01/25/23 11:44 84 98 01/25/23 11:39 73 98 01/25/23 11:34 80 97 01/25/23 11:32 80 116/60 01/25/23 11:29 77 96 01/25/23 11:24 79 97 01/25/23 11:19 82 97 01/25/23 11:14 70 118/56 L 98 01/25/23 11:09 83 97 01/25/23 11:07 81 123/60 01/25/23 11:04 85 99 01/25/23 10:59 85 96 01/25/23 10:56 81 89 L 01/25/23 10:54 97 01/25/23 10:54 80 01/25/23 10:54 72 121/74 01/25/23 10:49 84 98 01/25/23 10:44 81 126/68 98 01/25/23 10:39 87 97 01/25/23 10:34 93 H 132/66 98 01/25/23 10:31 84 91 01/25/23 10:29 90 97 01/25/23 10:24 96 01/25/23 10:24 86 01/25/23 10:24 85 128/72 01/25/23 10:19 96 H 97 01/25/23 10:14 88 124/69 97 01/25/23 07:25 18 01/25/23 07:25 37.3 C 18 01/25/23 07:27 104 H 127/69 Transfer of Care Handoff Completed per policy Notes Mental Status: alert / awake / arousable Nausea / Vomiting: adequately controlled Pain: adequately controlled Airway Patency, RR, SpO2: stable & adequate BP & HR: stable & adequate Hydration State: stable & adequate Neuraxial Anesthesia: was administered and sensory block is resolving Anesthetic Complications: no major complications apparent and Pt Satisfied with anesthetic care
[2023-01-25] MEDS: OXYTOCIN 30 UNITS in LACTATED RINGER'S 1,000 ML IV SCH ×2 (12:51→20:51)
[2023-01-25] MEDS: SIMETHICONE 80 MG CHEW PO SCH ×3 (15:08→20:43)
[2023-01-25] MEDS: DOCUSATE SODIUM 100 MG CAP PO SCH (20:43)
[2023-01-26] MEDS ORDERED: diphenhydrAMINE 50 MG/ML VIAL IV PRN (02:32)
[2023-01-26] MEDS ORDERED: PROMETHAZINE HCL 25 MG in SODIUM CHLORIDE 0.9% 50 ML IV PRN (02:32)
[2023-01-26] MEDS ORDERED: ONDANSETRON INJ 2 MG/ML 2 ML VIAL IV PRN (02:32)
[2023-01-26] MEDS ORDERED: diphenhydrAMINE Capsule 25 MG CAP PO PRN (02:32)
[2023-01-26] MEDS ORDERED: KETOROLAC 30 MG/ML VIAL IV PRN (02:32)
[2023-01-26] MEDS: IBUPROFEN 600 MG TAB PO PRN ×5 (02:37→23:00)
--- NOTE | 2023-01-26 06:11 | Obstetrical Progress Note ---
Date of Service <Ernestina Leonard MD - Last Filed: 01/26/23 07:24> January 26, 2023 Assessment & Plan <Ernestina Leonard MD - Last Filed: 01/26/23 07:24> (1) care following delivery: 32 y/o female presented for repeat c/s now POD1. GBS pos, RI, Rh pos. Overall doing well. Tolerating PO. Encourage ambulation. Satisfactory post-pa rtum progress. <Theresa Candelario MD, FACOG - Last Filed: 01/26/23 07:31> (1) care following delivery: Subjective <Ernestina Leonard MD - Last Filed: 01/26/23 07:24> Ambulation: ambulating normally Voiding: no voiding problems Passing Gas:: Yes Diet Tolerance:: regular diet Lochia:: Small Feeding Type:: breast feeding Physical Exam <Ernestina Leonard MD - Last Filed: 01/26/23 07:24> Gen: well appearing female in NAD HEENT: AT NC Resp: CTAB no increased work of breathing CV: RRR no m/r/g, clinically well perfused, no calf tenderness : uterine fundus firm and non-tender at the level of the umbilicus, wound: c/d/i no strike through Results & Data ([facility]) <Ernestina Leonard MD - Last Filed: 01/26/23 07:24> Vital Signs (Past 12 Hours) Vital Signs Temp Pulse Resp BP Pulse Ox O2 Del Method 01/26/23 04:03 37.0 C 86 16 109/69 Room Air 01/26/23 02:24 16 94 01/26/23 01:17 18 94 01/26/23 00:11 18 96 01/25/23 23:40 18 94 01/26/23 00:11 37.3 C 88 18 114/69 96 Room Air 01/25/23 22:31 18 96 01/25/23 21:23 18 95 01/25/23 20:32 18 97 01/25/23 19:39 18 95 01/25/23 19:39 37.3 C 88 18 111/66 96 Room Air 01/25/23 18:22 20 96 Laboratory Results 01/26/23 06:03 <Theresa Candelario MD, FACOG - Last Filed: 01/26/23 07:31> Co-Signing Physician Notes Resident Physician Supervision Note: I interviewed and examined the patient. Discussed with Dr. Leonard and agree with findings and plan as documented in the note. Any exceptions or clarifications are listed here: Doing well post op day 1. routine care. Documented By: Theresa Candelario MD, FACOG Resident Activity Tracking <Ernestina Leonard MD - Last Filed: 01/26/23 07:24> Resident Involvement: Resident Care Provided Care Provided: OB Delivery
[2023-01-26 06:26] LABS: Basophils # (auto) 0.04 K/uL (0-0.2); Basophils % (auto) 0.4 %; Eosinophils # (auto) 0.03 K/uL (0-0.50); Eosinophils % (auto) 0.3 %; Hematocrit (blood only) 29.3 % (37.0-47.0); Hemoglobin 10.1 g/dl (12.0-16.0); Immature Granulocytes # (auto) 0.06 K/uL (0.01-0.20); Immature Granulocytes % (auto) 0.6 %; Lymphocytes # (auto) 1.74 K/uL (1.2-3.4); Lymphocytes % (auto) 17.4 %; Mean Corpuscular Hemoglobin 30.6 pg (25.0-34.0); Mean Corpuscular Hgb Conc 34.5 g/dL (32.0-36.0); Mean Corpuscular Volume 88.8 fL (80.0-100.0); Mean Platelet Volume 9.4 fL (9.4-12.4); Monocytes # (auto) 0.69 K/uL (0.11-0.59); Monocytes % (auto) 6.9 %; Neutrophils # (auto) 7.46 K/uL (1.40-6.50); Neutrophils % (auto) 74.4 %; Platelet Count 201 K/uL (130-400); RDW Coefficient of Variation 13.2 % (11.5-14.5); RDW Standard Deviation 42.5 fL (36.4-46.3); White Blood Count 10.02 K/ul (4.8-10.8)
[2023-01-26] MEDS: oxyCODONE/ACETAMINOPHEN 5mg/325mg TAB PO PRN ×4 (07:23→23:01)
[2023-01-26] MEDS: PRENATAL VITAMIN 1 TAB PO SCH (08:13)
[2023-01-26] MEDS: DOCUSATE SODIUM 100 MG CAP PO SCH ×2 (08:13→21:07)
[2023-01-26] MEDS: FERROUS SULFATE 325 MG TAB PO SCH (08:13)
[2023-01-26] MEDS: SIMETHICONE 80 MG CHEW PO SCH ×4 (08:13→21:07)
[2023-01-26] MEDS ORDERED: bisacodyL 5 MG TABEC PO SCH (20:00)
[2023-01-27] MEDS: oxyCODONE/ACETAMINOPHEN 5mg/325mg TAB PO PRN ×2 (04:54→08:35)
[2023-01-27] MEDS: IBUPROFEN 600 MG TAB PO PRN ×2 (04:54→08:35)
--- NOTE | 2023-01-27 05:28 | Obstetrical Progress Note ---
Date of Service <Ernestina Leonard MD - Last Filed: 01/27/23 06:43> January 27, 2023 Assessment & Plan <Ernestina Leonard MD - Last Filed: 01/27/23 06:43> (1) care following delivery: 32 y/o female presented for repeat c/s now POD2. GBS pos, RI, Rh pos. Overall doing well. Tolerating PO. Encourage ambulation. Satisfactory post- progress. <Skylar Duncan MD - Last Filed: 01/27/23 07:56> (1) care following delivery: Subjective <Ernestina Leonard MD - Last Filed: 01/27/23 06:43> Ambulation: ambulating normally Voiding: no voiding problems Passing Gas:: Yes Diet Tolerance:: regular diet Lochia:: Small Feeding Type:: breast feeding Physical Exam <Ernestina Leonard MD - Last Filed: 01/27/23 06:43> Gen: well appearing female in NAD HEENT: AT NC Resp: CTAB no increased work of breathing CV: RRR no m/r/g, clinically well perfused, no calf tenderness : uterine fundus firm and non-tender at the level of the umbilicus, wound: c/d/i, no purulent discharge or erythema Psych: appropriate mood and affect Neuro: alert and oriented Results & Data ([facility]) <Ernestina Leonard MD - Last Filed: 01/27/23 06:43> Vital Signs (Past 12 Hours) Vital Signs Temp Pulse Resp BP Pulse Ox O2 Del Method 01/26/23 19:35 36.8 C 84 18 107/70 97 Room Air Laboratory Results 01/26/23 06:03 <Skylar Duncan MD - Last Filed: 01/27/23 07:56> Co-Signing Physician Notes Resident Physician Supervision Note: I interviewed and examined the patient. Discussed with Dr. Leonard and agree with findings and plan as documented in the note. Any exceptions or clarifications are listed here: POD2 s/p rLTCS, doing well. VSS, exam benign and wnl. Incision intact w/ steristrips. Desires d/c home today, stable to do so Documented By: Skylar Duncan MD Resident Activity Tracking <Ernestina Leonard MD - Last Filed: 01/27/23 06:43> Resident Involvement: Resident Care Provided Care Provided: OB Delivery
[2023-01-27 06:41] LABS: Hematocrit (blood only) 27.8 % (37.0-47.0); Hemoglobin 9.3 g/dl (12.0-16.0)
[2023-01-27] MEDS: SIMETHICONE 80 MG CHEW PO SCH (07:55)
[2023-01-27] MEDS: DOCUSATE SODIUM 100 MG CAP PO SCH (07:55)
[2023-01-27] MEDS: FERROUS SULFATE 325 MG TAB PO SCH (07:55)
[2023-01-27] MEDS: PRENATAL VITAMIN 1 TAB PO SCH (07:55)
[2023-01-27] MEDS ORDERED: bisacodyL 10 MG SUPP PR PRN (10:13)
== END 2023-01-27 11:30 | disposition home or self-care (01) | DRG 788 ==
LOC: 4S1 07:07 → EDSTATUS 07:30 → 4E2 12:35